=== PATIENT | male | born 1975 | race Caucasian/White ===

== ENCOUNTER 2019-08-23 14:56 | Emergency (ER) | payer MEDICAID ==
[2019-08-23 15:23] VITALS: BP 152/77
[2019-08-23] MEDS ORDERED: KETOROLAC 60 MG/2 ML VIAL IM STA (16:03)
--- NOTE | 2019-08-23 16:06 | ED Physician Documentation ---
History of Present Illness - Stated complaint Stated Complaint: RT KNEE PX - Chief complaint Chief Complaint: General - History obtained from History obtained from: Patient - History of Present Illness Timing: Today Pain level max: 8 Pain level now: 8 - Additonal information Additional information: 44-year-old male presents to the emergency department with right knee pain. Similar to past gout flareups. Out of his indomethacin. Worse with movement, better with rest. No trauma. No fevers. Review of Systems Constitutional: denies: Fever, Chills GI: denies: Vomiting Skin: denies: Rash PD PAST MEDICAL HISTORY - Past Medical History Past Medical History: Yes Musculoskeletal: Gout - Past Surgical History Past Surgical History: No - Present Medications Home Medications: Ambulatory Orders Medication Instructions Recorded Confirmed Indomethacin 25 - 50 mg PO Q8H PRN #30 capsule 08/23/19 - Allergies Allergies/Adverse Reactions: Allergies Allergy/AdvReac Type Severity Reaction Status Date / Time No Known Drug Allergies Allergy Verified 08/23/19 15:19 - Social History Does the pt smoke?: No Smoking Status: Never smoker Does the pt drink ETOH?: No Does the pt have substance abuse?: No - Immunizations Immunizations are current?: Yes - POLST Patient has POLST: No PD ED PE NORMAL - Vitals Vital signs reviewed: Yes - General General: Alert and oriented X 3, No acute distress - HEENT HEENT: Moist mucous membranes - Neck Neck: Supple, no meningeal sign - Derm Derm: Warm and dry - Extremities Extremities: Other (Mild swelling and diffuse tenderness about the right knee. Full range of motion present. No signs of septic joint. Neurovascular intact. No bony tenderness) - Neuro Neuro: Alert and oriented X 3 Results - Vitals Vitals: Vital Signs - 24 hr 08/23/19 15:19 Temperature 36.6 C Heart Rate 71 Respiratory 16 Rate Blood Pressure 152/77 H O2 Saturation 99 Oxygen O2 Source Room air PD MEDICAL DECISION MAKING - ED course Complexity details: considered differential, d/w patient ED course: Patient with a acute gout flare of the right knee. Given Toradol here. Will place on indomethacin for home. He states he normally does not use steroids or colchicine. No evidence of septic joint. No evidence of infection. Patient counseled regarding signs and symptoms for which I believe and urgent re- evaluation would be necessary. Patient with good understanding of and agreement to plan and is comfortable going home at this time This document was made in part using voice recognition software. While efforts are made to proofread this document, sound alike and grammatical errors may occur. Departure - Departure Disposition: 01 Home, Self Care Clinical Impression: Gout flare Qualifiers: Gout site: knee Gout etiology: unspecified cause Laterality: right Qualified Code(s): M10.9 - Gout, unspecified Condition: Good Instructions: ED Arthritis Gout Follow-Up: Your,doctor in 1 week [Other] Prescriptions: Indomethacin 25 - 50 mg PO Q8H PRN #30 capsule PRN Reason: knee pain Comments: Drink plenty of water. Return if you worsen. This should improve with the indomethacin and Toradol.
== END 2019-08-23 16:18 | disposition home or self-care (01) ==
LOC: ED 14:56
DX: M10.9 Gout, unspecified (principal)
CPT/HCPCS: 96372; 99283; 99284

== ENCOUNTER 2019-11-18 06:54 | Emergency (ER) | payer OTHER, MEDICAID ==
[2019-11-18 07:18] VITALS: BP 155/93
[2019-11-18] MEDS ORDERED: DEXAMETHASONE 10 MG/ML VIAL PO STA (07:39)
[2019-11-18] MEDS ORDERED: CHERRY SYRUP 10 ML UDC PO ONE (07:39)
[2019-11-18] MEDS ORDERED: KETOROLAC 60 MG/2 ML VIAL IM STA (07:39)
--- NOTE | 2019-11-18 07:41 | ED Physician Documentation ---
PD HPI BACK PAIN - Stated complaint Stated Complaint: SHOULDER/BACK PX - Chief complaint Chief Complaint: Back Pain - History obtained from History obtained from: Patient - History of Present Illness Timing - onset: How many months ago (3) Timing - duration: Months (3) Timing - details: Gradual onset, Still present, Waxing and waning Location: Upper, Lower, Right Quality: Pain, Spasm, Sharp, Similar to prior episodes Associated symptoms: No: Fever, Weakness, Numbness, Incontinent of urine, Unable to urinate, Hematuria, Incontinent of stool Improves with: Rest, Position Contributing factors: Lifting, Twisting, Other (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 Review of Systems Constitutional: denies: Fever Eyes: denies: Decreased vision Ears: denies: Ear pain Nose: denies: Congestion Throat: denies: Sore throat Cardiac: denies: Chest pain / pressure Respiratory: denies: Dyspnea, Cough GI: denies: Abdominal Pain, Nausea, Vomiting : denies: Dysuria, Frequency Skin: denies: Rash Musculoskeletal: reports: Neck pain, Back pain, Extremity pain, Joint pain PD PAST MEDICAL HISTORY - Past Medical History Musculoskeletal: Gout - Past Surgical History Past Surgical History: No - Present Medications Home Medications: Ambulatory Orders Medication Instructions Recorded Confirmed Indomethacin 25 - 50 mg PO Q8H PRN #30 capsule 08/23/19 Cyclobenzaprine [Flexeril] 10 mg PO TID PRN #20 tablet 11/18/19 Hydrocodone/Acetaminophen 1 - 2 each PO Q6H PRN #14 tablet 11/18/19 [Hydrocodone-Acetamin 5-325 mg] - Allergies Allergies/Adverse Reactions: Allergies Allergy/AdvReac Type Severity Reaction Status Date / Time No Known Drug Allergies Allergy Verified 11/18/19 07:13 - Social History Does the pt smoke?: No Smoking Status: Never smoker Does the pt drink ETOH?: No Does the pt have substance abuse?: No - Immunizations Immunizations are current?: Yes - POLST Patient has POLST: No PD ED PE NORMAL - Vitals Vital signs reviewed: Yes (hpyertensive ) - General General: Alert and oriented X 3, No acute distress, Well developed/nourished - HEENT HEENT: Atraumatic, PERRL, EOMI - Neck Neck: Supple, no meningeal sign, No bony TTP - Respiratory Respiratory: No respiratory distress - Back Back: No CVA TTP, No spinal TTP, Other (There is tenderness midline in the lower lumbar spine and to the left extending into the sciatic notch on the left. There is tenderness to the trapezius bilateraly over the insertion of the spinal accessory. ) - Derm Derm: Normal color, Warm and dry, No rash - Extremities Extremities: No deformity, No edema - Neuro Neuro: Alert and oriented X 3, tanbark laborer 2-12 intact, No motor deficit, No sensory deficit, Normal speech Eye Opening: Spontaneous Motor: Obeys Commands Verbal: Oriented GCS Score: 15 - Psych Psych: Normal mood, Normal affect Results - Vitals Vitals: Vital Signs - 24 hr 11/18/19 07:13 Temperature 36.6 C Heart Rate 60 Respiratory 18 Rate Blood Pressure 155/93 H O2 Saturation 100 Oxygen O2 Source Room air PD MEDICAL DECISION MAKING - ED course Complexity details: reviewed old records, considered differential, d/w patient ED course: 44-year-old male with chronic back pain and sciatic symptoms as well as radiculopathy all seeming to stem from overuse. He has stopped working one week ago and today he is given decadron 10mg PO and toradal 60mg IM and we will provide a short course of pain medication and muscle relaxant and a follow up referral for possible advanced imaging. Departure - Departure Disposition: 01 Home, Self Care Clinical Impression: Cervical radiculopathy Sciatica Qualifiers: Laterality: left Qualified Code(s): M54.32 - Sciatica, left side Condition: Stable Instructions: ED Spasm Back No Trauma, ED Sciatica, ED Cervical Radiculopathy Follow-Up: [facility] [Provider Group] Prescriptions: Cyclobenzaprine [Flexeril] 10 mg PO TID PRN #20 tablet PRN Reason: Spasms Hydrocodone/Acetaminophen [Hydrocodone-Acetamin 5-325 mg] 1 - 2 each PO Q6H PRN #14 tablet PRN Reason: Pain
== END 2019-11-18 08:01 | disposition home or self-care (01) ==
LOC: ED 06:54
DX: M54.12 Radiculopathy, cervical region (principal); M54.32 Sciatica, left side; G89.29 Other chronic pain; X50.3XXA Overexertion from repetitive movements, initial encounter; X50.0XXA Overexertion from strenuous movement or load, initial encounter; Y99.0 Civilian activity done for income or pay
CPT/HCPCS: 1040M; 96372; 99282; 99284; A9270

== ENCOUNTER 2019-11-19 16:42 | Emergency (ER) | payer OTHER, MEDICAID ==
[2019-11-19] MEDS ORDERED: KETOROLAC 60 MG/2 ML VIAL IM STA (17:43)
--- NOTE | 2019-11-19 18:42 | MRI Report ---
PROCEDURE: Lumbar Spine W/O INDICATIONS: low back pain urinary symptoms TECHNIQUE: Noncontrast sagittal T1 spin echo and T2 fast echo, sagittal STIR, axial T1 and T2 fast spin echo thr ough the lumbar spine. In cases with scoliosis, additional coronal T2 fast spin echo may be performe d. COMPARISON: None. FINDINGS: Image quality: Excellent. Alignment and Curvature: Grade 2 anterolisthesis of L4 on L5 measuring approximately 1.4 cm. There th ere is posterior height loss of the L4 vertebral body, along with intermediate signal intensity mater ial immediately posterior to the L4 vertebral body, likely representing either fracture fragments or scarring/granulation tissue related to the provided history of prior fracture. There are bilateral L4 pars defects, potentially traumatic versus congenital. Lumbar spinal alignment is otherwise normal. Vertebral body heights are normal with no evidence of additional fracture. Bone Marrow: Degenerative marrow signal change of the opposing L4-L5 endplates as well as the T11-T12 endplates. Marrow and soft tissue edema surrounding the L4-L5 facets which is strongly suggestive of instability. Spinal Cord: Normal position and appearance of the conus. Visualized portions of the distal thoracic cord are normal. Regional Soft Tissues: Prevertebral and paraspinous soft tissues are otherwise normal. T12-L1: Disc bulge flattens and indents the ventral thecal sac. Disc material displaces the descendi ng right greater than left L1 nerve roots within the subarticular zones (series 701 image 43). Forami nal components of the disc bulge contribute to mild neural foraminal narrowing on the right. L1-L2: No spinal canal or neural foraminal stenosis. L2-L3: No spinal canal or neural foraminal stenosis. L3-L4: No spinal canal or neural foraminal stenosis. L4-L5: Pseudobulge related to the spondylolisthesis combines with true disc bulge to flatten the ve ntral thecal sac with considerable moderately severe mass effect upon the traversing L5 nerve roots i n both subarticular zones. Neural foraminal deformation related to the anterolisthesis combines with disc height loss and foraminal components of the disc material to produce severe bilateral neural for aminal stenosis. There is flattening/deformation of the exiting L4 nerve roots bilaterally, producing strongly suspected impingement. L5-S1: No spinal canal or neural foraminal stenosis. IMPRESSION: Grade 2 spondylolisthesis of L4 on L5 producing severe subarticular zone and neural foraminal stenosi s. Suspected impingement of the L4 and L5 nerve roots as a result. Reviewed by: Alton Miranda MD on 11/19/2019 6:40 PM PDT Approved by: Alton Miranda MD on 11/19/2019 6:40 PM PDT Station ID: [id number]
--- NOTE | 2019-11-19 18:57 | ED Physician Documentation ---
History of Present Illness - Stated complaint Stated Complaint: BACK PX - Chief complaint Chief Complaint: Back Pain - History obtained from History obtained from: Patient - Additonal information Additional information: 44-year-old male presents to the emergency department to have an MRI completed. This gentleman has a history of chronic low back pain as well as shoulder pain. He was seen by my colleague yesterday and initially received a dose of Decadron as well as some of Vicodin. He was following up with his primary care doctor this morning but he reported that he has developed some saddle anesthesia and was having difficulty controlling the flow of his urine. Therefore his primary doctor referred him back to the emergency department with the hopes of obtaining an MRI. Since being seen yesterday patient feels that his pain is not markedly improved. He states that he has had intermittently through the years with back pain is some saddle anesthesia as well as occasional loss of control of bowel or bladder function. Pain is sharp and radiates down the left left at time. Review of Systems Constitutional: reports: Reviewed and negative Nose: reports: Reviewed and negative Throat: reports: Reviewed and negative Cardiac: reports: Reviewed and negative Respiratory: reports: Reviewed and negative GI: reports: Reviewed and negative : reports: Reviewed and negative Skin: reports: Reviewed and negative Musculoskeletal: reports: Joint pain (bilateral shoulders) Neurologic: reports: Numbness (saddle area). denies: Focal weakness Psychiatric: reports: Reviewed and negative PD PAST MEDICAL HISTORY - Past Medical History Past Medical History: Yes Musculoskeletal: Gout, Chronic back pain - Past Surgical History Past Surgical History: Yes Ortho: Carpal Tunnel surgery - Present Medications Home Medications: Ambulatory Orders Medication Instructions Recorded Confirmed Indomethacin 25 - 50 mg PO Q8H PRN #30 capsule 08/23/19 Cyclobenzaprine [Flexeril] 10 mg PO TID PRN #20 tablet 11/18/19 Hydrocodone/Acetaminophen 1 - 2 each PO Q6H PRN #14 tablet 11/18/19 [Hydrocodone-Acetamin 5-325 mg] Oxycodone HCl/Acetaminophen 1 - 2 each PO Q6H PRN #14 tablet 11/19/19 [Percocet 5-325 mg Tablet] - Allergies Allergies/Adverse Reactions: Allergies Allergy/AdvReac Type Severity Reaction Status Date / Time acetaminophen [From Vicodin] AdvReac Emesis Verified 11/19/19 16:58 hydrocodone [From Vicodin] AdvReac Emesis Verified 11/19/19 16:58 - Social History Does the pt smoke?: No Smoking Status: Former smoker Does the pt drink ETOH?: No Does the pt have substance abuse?: No - Immunizations Immunizations are current?: Yes - POLST Patient has POLST: No PD ED PE NORMAL - General General: Alert and oriented X 3, No acute distress - HEENT HEENT: PERRL - Cardiac Cardiac: RRR, No murmur - Respiratory Respiratory: Clear bilaterally - Abdomen Abdomen: Normal bowel sounds, Soft, Non tender, Non distended - Rectal Rectal: Other (Rectal numbness. Mild loss of tone but patient is able to bear down.) - Back Back: Other (No midline lumbar spinous process tenderness. Tenderness of the lower lumbar spinous process muscles. Patient does have saddle anesthesia with loss of sensation medial thighs and rectal testicular area. Rectal tone is normal. Motor strength 5 of 5 ble. walks on toes but not heel on left foot. ) - Neuro Neuro: Alert and oriented X 3, ocean freight forwarder 2-12 intact, No motor deficit Eye Opening: Spontaneous Motor: Obeys Commands Verbal: Oriented GCS Score: 15 Results - Vitals Vitals: Vital Signs - 24 hr 11/19/19 11/19/19 16:56 19:24 Temperature 36.7 C 36.7 C Heart Rate 56 L 54 L Respiratory 17 12 Rate Blood Pressure 131/75 H 134/86 H O2 Saturation 99 99 Oxygen O2 Source Room air - Rads (name of study) MRI Radiology: Final report received (Grade 2 spondylolisthesis of L4-L5 producing severe subarticular zone and neuroforaminal stenosis. Suspected impingement of the L4-L5 roots as a result) CT thoracic Radiology: Final report received (Chronic L4 pars defects with grade 2 anterolisthesis L4-L5 producing severe subarticular zone and neural gnosis bilaterally. 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 Rae Neurosurgery [facility]) ED course: 44-year-old male returns emergency department for evaluation of low back pain and saddle anesthesia. On exam he certainly feels like he has been shot with Novocain in the saddle area. He has some mildly decreased rectal tone but is able to bear down appropriately. The MRI showed grade 2 spondylolisthesis of L4-L5 with nerve root impingement. However these MRI findings do not explain the cause for the saddle anesthesia. I did discuss the MRI findings with neurosurgeon Dr. Rae through [facility]. He would recommend a lumbar girdle as well as a noncontrast CT of the lumbar spine. He would like to see the patient in office tomorrow. His PVR is 16 ml. Return precautions discussed Departure - Departure Disposition: Home, Self Care Clinical Impression: Saddle anesthesia Low back pain Qualifiers: Chronicity: chronic Back pain laterality: left Sciatica presence: without sciatica Qualified Code(s): M54.5 - Low back pain; G89.29 - Other chronic pain Condition: Serious Record reviewed to determine appropriate education?: Yes Prescriptions: Oxycodone HCl/Acetaminophen [Percocet 5-325 mg Tablet] 1 - 2 each PO Q6H PRN #14 tablet PRN Reason: pain Comments: Dr. Kyra Mae would like to see you in his office tomorrow. He is an orthopedic surgeon that deals specifically with defects of the spine and spinal cord. Please call his office in the morning [phone]. Dr. Toni Rae Orthopaedic surgery - orthopaedic surgery of the spine [address] [place] [address] If you develop worsening pain, have worsening numbness between your legs, cannot control your bowel or bladder function I recommend that you go directly to the emergency department. I have prescribed some Percocet for your pain. Please do not take the Vicodin if taking the Percocet. Please have a lumber stacker driver take you to Dr. Rae's office tomorrow.
--- NOTE | 2019-11-19 20:49 | CT Report ---
PROCEDURE: LUMBAR SPINE WO INDICATIONS: Low back pain, cauda equina syndrome TECHNIQUE: Noncontrast 3 mm thick sections acquired from the T12 level to the sacrum. Sagittal and coronal refo rmats were constructed. For radiation dose reduction, the following was used: automated exposure co ntrol, adjustment of mA and/or kV according to patient size. COMPARISON: Same-day MRI FINDINGS: Image quality: Excellent. 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 Chronic bilateral L4 pars defects with grade 2 anterolisthesis of L4 on on L5 producing severe bilate ral subarticular zone and neural foraminal stenosis, better appreciated on comparison MRI. Disc height loss at T10-T11, T11-T12, and T12-L1 with vacuum disc phenomenon and Schmorl nodes at the se levels along with degenerative endplate changes and posterior ossific ridging. No spinal canal rebeca nosis at these levels. Mild neural foraminal stenosis is present at T12-L1. Other findings as described on MRI are not significantly changed. IMPRESSION: Chronic L4 pars defects with grade 2 anterolisthesis of L4 on L5 producing severe subarticular zone a nd neural foraminal stenosis bilaterally. 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 This is a significant pote ntial pain generator on the left. Reviewed by: Alton Miranda MD on 11/19/2019 8:47 PM PDT Approved by: Alton Miranda MD on 11/19/2019 8:47 PM PDT Station ID: [id number]
[2019-11-19] MEDS ORDERED: oxyCODONE/ACET 5/325 Prepack 4 PO STA (20:54)
[2019-11-19 21:13] VITALS: BP 129/71
== END 2019-11-19 21:13 | disposition home or self-care (01) ==
LOC: ED 16:42
DX: R20.0 Anesthesia of skin (principal); M54.5 Low back pain; G89.29 Other chronic pain; Z87.891 Personal history of nicotine dependence
CPT/HCPCS: 51798; 72131; 72148; 99284

== ENCOUNTER 2020-07-20 06:21 | Emergency (ER) | payer MEDICAID ==
[2020-07-20 06:40] VITALS: BP 142/87
--- OUTSIDE RECORDS SUMMARY | 2020-07-20 06:49 | EXTERNAL MEDICAL SUMMARY RPT | Continuity of Care Document ---
:1975 Demographics Phone Unavailable Preferred Language Unknown Marital Status Unknown Jehovah'S Witness Affiliation Unknown Race Unknown Ethnic Group Unknown Author Organization [facility] Address [address] [phone] Phone Allergies Encounters Medications Problems Results
[2020-07-20] MEDS ORDERED: KETOROLAC 60 MG/2 ML VIAL IM STA (06:54)
--- NOTE | 2020-07-20 07:20 | ED Physician Documentation ---
History of Present Illness - Stated complaint Stated Complaint: GOUT FLAIR UP - Chief complaint Chief Complaint: Ext Problem - History obtained from History obtained from: Patient - History of Present Illness Timing: How many weeks ago (1) - Additonal information Additional information: 45-year-old male with a history of gout has began to have an a flare last night and took some indomethacin. He states that did help a bit but in the past he has found that a shot of Toradol is helped tremendously especially if he gets it early enough. He has not otherwise been ill recently. Review of Systems Constitutional: denies: Fever Eyes: denies: Decreased vision Ears: denies: Ear pain Nose: denies: Congestion Throat: denies: Sore throat Cardiac: denies: Chest pain / pressure, Palpitations Respiratory: denies: Dyspnea, Cough GI: denies: Abdominal Pain, Nausea, Vomiting : denies: Dysuria, Frequency Skin: denies: Rash Musculoskeletal: reports: Back pain, Joint pain, Pain with weight bearing. denies: Neck pain, Extremity swelling Neurologic: denies: Generalized weakness, Focal weakness, Numbness PD PAST MEDICAL HISTORY - Past Medical History Musculoskeletal: Gout, Chronic back pain - Past Surgical History Past Surgical History: Yes Ortho: Carpal Tunnel surgery - Present Medications Home Medications: Ambulatory Orders Medication Instructions Recorded Confirmed Buspirone HCl 10 mg PO DAILY 07/20/20 07/20/20 Dextroamphetamine/Amphetamine 30 mg PO DAILY 07/20/20 07/20/20 [Adderall Xr 30 mg Capsule] - Allergies Allergies/Adverse Reactions: Allergies Allergy/AdvReac Type Severity Reaction Status Date / Time acetaminophen [From Vicodin] AdvReac Emesis Verified 07/20/20 06:39 hydrocodone [From Vicodin] AdvReac Emesis Verified 07/20/20 06:39 - Social History Does the pt smoke?: No Smoking Status: Former smoker Does the pt drink ETOH?: No Does the pt have substance abuse?: No - Immunizations Immunizations are current?: Yes - POLST Patient has POLST: No PD ED PE NORMAL - Vitals Vital signs reviewed: Yes (Hypertensive) - General General: Alert and oriented X 3, No acute distress, Well developed/nourished - HEENT HEENT: Atraumatic, PERRL, EOMI - Respiratory Respiratory: No respiratory distress - Derm Derm: Normal color, Warm and dry, No rash - Extremities Extremities: No deformity, No edema, No calf tenderness / cord, Other (The ligaments are stable to testing on the left knee there is no significant joint effusion or warmth. There is some pain to range of motion and to exam in general.) - Neuro Neuro: Alert and oriented X 3, child custody evaluator 2-12 intact, No motor deficit, No sensory deficit, Normal speech Eye Opening: Spontaneous Motor: Obeys Commands Verbal: Oriented GCS Score: 15 - Psych Psych: Normal mood, Normal affect Results - Vitals Vitals: Vital Signs - 24 hr 07/20/20 06:35 Temperature 36.3 C L Heart Rate 52 L Respiratory 20 Rate Blood Pressure 142/87 H O2 Saturation 97 Oxygen O2 Source Room air PD MEDICAL DECISION MAKING - ED course Complexity details: reviewed old records, re-evaluated patient, considered differential, d/w patient ED course: 45-year-old male with a flare of gout requests a shot of Toradol declines narcotic pain reliever. Is encouraged to use Pepcid AC while he is on the indomethacin as it does given him an upset stomach. Departure - Departure Disposition: 01 Home, Self Care Clinical Impression: Gout flare Qualifiers: Gout site: knee Gout etiology: unspecified cause Laterality: left Qualified Code(s): M10.9 - Gout, unspecified Condition: Stable Instructions: ED Arthritis Gout, ED Diet Gout Follow-Up: AMY BRAVO PA [Primary Care Provider] -
== END 2020-07-20 07:35 | disposition home or self-care (01) ==
LOC: ED 06:21
DX: M10.062 Idiopathic gout, left knee (principal); M54.9 Dorsalgia, unspecified; Z87.891 Personal history of nicotine dependence
CPT/HCPCS: 96372; 99283

== ENCOUNTER 2020-09-28 18:10 | Emergency (ER) | payer MEDICAID ==
[2020-09-28] MEDS ORDERED: TETANUS/DIPHTHERIA/PERTUSSIS 0.5 ML SYRINGE IM ONE (18:27)
[2020-09-28] MEDS ORDERED: BUFFERED LIDOCAINE 10 ML SYRINGE SUBQ STA (18:27)
[2020-09-28] MEDS ORDERED: BACITRACIN ZINC OINT 1 PACKET TOP STA (18:27)
[2020-09-28] MEDS ORDERED: oxyCODONE 5 MG TABLET PO STA (18:28)
--- NOTE | 2020-09-28 18:29 | ED Physician Documentation ---
History of Present Illness - Stated complaint Stated Complaint: HEAD INJURY - Chief complaint Chief Complaint: Laceration - Additonal information Additional information: 45-year-old male presents emergency department for evaluation of head injury. He was moving a ladder in his home and there was a hammer on the top step. When moving the hammer over a chair the hammer fell from a height of about 4 feet striking him on his left forehead. He reports the hammer weight approximately 4 pounds. He did not lose consciousness but endorses a persistent headache since the incident about 45 minutes ago. Unknown last tetanus. He is not anti coagulated. Review of Systems Constitutional: denies: Fever, Chills Eyes: reports: Reviewed and negative Ears: reports: Reviewed and negative Nose: reports: Reviewed and negative Throat: reports: Reviewed and negative Cardiac: reports: Reviewed and negative Skin: reports: Laceration (s) (Left forehead) Neurologic: reports: Headache PD PAST MEDICAL HISTORY - Past Medical History Cardiovascular: None Respiratory: None Neuro: None Endocrine/Autoimmune: None GI: GERD : None HEENT: None Psych: None Musculoskeletal: Gout, Chronic back pain Derm: None - Past Surgical History Past Surgical History: Yes Ortho: Carpal Tunnel surgery - Present Medications Home Medications: Ambulatory Orders Medication Instructions Recorded Confirmed Dextroamphetamine/Amphetamine 40 mg PO DAILY 07/20/20 09/28/20 [Adderall Xr 30 mg Capsule] Sertraline [Zoloft] 25 mg PO DAILY 09/28/20 09/28/20 Sildenafil Citrate [Viagra] 50 - 75 mg PO DAILY PRN 09/28/20 09/28/20 - Allergies Allergies/Adverse Reactions: Allergies Allergy/AdvReac Type Severity Reaction Status Date / Time acetaminophen [From Vicodin] AdvReac Emesis Verified 09/28/20 18:14 hydrocodone [From Vicodin] AdvReac Emesis Verified 09/28/20 18:14 - Social History Does the pt smoke?: No Smoking Status: Never smoker Does the pt drink ETOH?: No Does the pt have substance abuse?: No - Immunizations Immunizations are current?: Yes - POLST Patient has POLST: No PD ED PE EXPANDED - General General: Alert, No acute distress, Well developed/nourished - HEENT HEENT: No: Atraumatic (2cm stellate laceration left forehead) - Neck Neck: Supple w/out meningeal sx. No: Adenopathy - Cardiac Cardiac: Regular Rate, Radial strong equal, Pedal strong equal, Cap refill < 2 sec. No: Murmur Present - Respiratory Respiratory: Clear to ausultation cortney. No: Distress, Labored - Derm Derm: Normal color, Warm and dry, Laceration(s) (2 cm stellate laceration left forehead) - Extremities Extremities: Normal. No: Deformity, Tenderness - Neuro Neuro: Alert and Oriented X 3, CNII-XII intact - GCS Eye Opening: Spontaneous Motor: Obeys Commands Verbal: Oriented Total: 15 Results - Vitals Vitals: Vital Signs - 24 hr 09/28/20 18:14 Temperature 36.5 C Heart Rate 65 Respiratory 16 Rate Blood Pressure 160/95 H O2 Saturation 97 Oxygen O2 Source Room air - Rads (name of study) CT head Radiology: Final report received (Left frontal scalp hematoma without skull fracture or intracranial hemorrhage.) Procedures - Laceration (location) left forehead Length in cm: 2 Wound type: Stellate, Irregular, Into subcut fat, Clean Neurovascular status: Sensory intact, Motor intact Tendon involvement: Tendon intact Anesthesia: Lidocaine 1% Wound preparation: Chlorhexadine, Irrigated copiously NS, To the base, debridement of wound edges (traumatic laceration/avulsion) Skin layer closure: Interrupted, Size #-0 - enter number (5), Sutures - enter # (3) Other: Patient tolerated well, No complications, Neurovascular intact, Dressing applied, Tetanus booster given PD MEDICAL DECISION MAKING - ED course Complexity details: reviewed results, d/w patient, d/w family ED course: 45-year-old male presents emergency department for evaluation of laceration to his forehead when he was moving a ladder and a 4 pound hammer fell from a height of 4 to 5 feet onto his forehead. There was no loss of consciousness. He is not anticoagulated. He presents well-appearing with no focal neuro deficits. He did have an irregular stellate laceration to the forehead which was closed at the bedside. CT the head shows no acute fractures or intracranial hemorrhage. Patient does not endorse a fairly persistent headache likely secondary to concussion. Will be discharged home with return precautions. Recommend Tylenol or ibuprofen for discomfort. Departure - Departure Disposition: 01 Home, Self Care Clinical Impression: Forehead laceration Qualifiers: Encounter type: initial encounter Qualified Code(s): S01.81XA - Laceration without foreign body of other part of head, initial encounter Concussion Qualifiers: Encounter type: initial encounter Loss of consciousness presence/duration: without LOC Qualified Code(s): S06.0X0A - Concussion without loss of consciousness, initial encounter Condition: Stable Record reviewed to determine appropriate education?: Yes Instructions: Brain Injury Mild Traum Concussion, Brain Injury Mild Traum Concu ss Tx Comments: Tu you were seen in the emergency department today after A hammer fell from a ladder striking you in the forehead. The CT of your head does not show any broken bones, no skull fracture and no bruising or bleeding within the brain. You did have an irregular laceration on your left forehead that we did close with 3 sutures. These should be removed in 5 to 7 days. Given how irregular this wound is I do expect that you will likely have a scar. You likely have a concussion secondary to the mechanism of injury. I would like you to get plenty of rest. Your goal should be to sleep 7 to 8 hours at night. Avoid excessive computer or TV or computer use over the next week. If at any point you develop a suddenly severe headache, have vision changes, uncontrolled vomiting, develop facial droop or slurred speech then please return immediately to the ER for a second evaluation
--- NOTE | 2020-09-28 19:20 | CT Report ---
PROCEDURE: HEAD WO INDICATIONS: hit by hammer; eval for TBI/skull fx TECHNIQUE: Noncontrast 4.5 mm thick angled axial sections acquired from the foramen magnum to the vertex. For r adiation dose reduction, the following was used: automated exposure control, adjustment of mA and/or kV according to patient size. COMPARISON: None. FINDINGS: Image quality: Excellent. CSF spaces: Basal cisterns are patent. No extra-axial fluid collections. Ventricles are normal in size and shape. Brain: No midline shift. No intracranial masses or hemorrhage. Mijares-white matter interface is norm al. Skull and face: Calvarium and visualized facial bones are intact, without suspicious lesions. Left frontal scalp hematoma Sinuses: Visualized sinuses and mastoids are clear. IMPRESSION: Left frontal scalp hematoma without skull fracture or intracranial hemorrhage Reviewed by: Dionte Witt MD on 09/28/2020 6:19 PM AKBEE Approved by: Dionte Witt MD on 09/28/2020 6:19 PM AKDT Station ID: [id number]
[2020-09-28 19:38] VITALS: BP 126/68
== END 2020-09-28 19:38 | disposition home or self-care (01) ==
LOC: ED 18:10
DX: S01.81XA Laceration without foreign body of other part of head, initial encounter (principal); S06.0X0A Concussion without loss of consciousness, initial encounter; W20.8XXA Other cause of strike by thrown, projected or falling object, initial encounter; Y92.009 Unspecified place in unspecified non-institutional (private) residence as the place of occurrence of the external cause
CPT/HCPCS: 13131; 70450; 90471; 90715; 99284; A9270

== ENCOUNTER 2021-06-06 07:50 | Emergency (ER) | payer MEDICAID ==
[2021-06-06 08:01] VITALS: BP 158/93
--- NOTE | 2021-06-06 08:15 | ED Physician Documentation ---
PD HPI UPPER EXT INJURY - Stated complaint Stated Complaint: RT HAND INJ - Chief complaint Chief Complaint: Trauma Ext - History obtained from History obtained from: Patient - History of Present Illness Location: Right, Hand Type of injury: Blunt / blow Where injury occurred: Home Timing - onset: How many days ago (10) Timing - duration: Days (10) Timing - details: Abrupt onset, Still present Improved by: Rest, Immobilization Worsened by: Moving, Palpating Associated symptoms: Swelling Contributing factors: No: Anticoagulated Similar symptoms before: Diagnosis (fracture) Recently seen: Not recently seen - Additonal information Additional information: Previously well 46-year-old male was in his home working on some tiling out in front of his door when his children opened the door and smashed his hand into the door. He has swelling and point tenderness over the fifth metacarpal distally and he was able to function fairly well until about 2 nights ago when he began to have more more aching pain pain is radiating all the way up to the elbow and has kept him awake at night. He did mow the lawn prior to the onset of these new symptoms. He has had multiple fractures previously feels that he is likely suffering from the effects of a fracture Review of Systems Constitutional: denies: Fever Nose: reports: Congestion Throat: denies: Sore throat Cardiac: denies: Chest pain / pressure Respiratory: denies: Dyspnea, Cough GI: denies: Abdominal Pain, Vomiting, Diarrhea Skin: denies: Rash Musculoskeletal: reports: Extremity pain, Joint pain, Extremity swelling, Joint swelling. denies: Neck pain, Back pain Neurologic: denies: Generalized weakness, Focal weakness, Numbness PD PAST MEDICAL HISTORY - Past Medical History Cardiovascular: None Respiratory: None Neuro: None Endocrine/Autoimmune: None GI: GERD : None HEENT: None Psych: None Musculoskeletal: Gout, Chronic back pain Derm: None - Past Surgical History Past Surgical History: Yes Ortho: Carpal Tunnel surgery - Present Medications Home Medications: Ambulatory Orders Medication Instructions Recorded Confirmed Dextroamphetamine/Amphetamine 30 mg PO DAILY 07/20/20 06/06/21 [Adderall Xr 30 mg Capsule] Sertraline [Zoloft] 25 mg PO DAILY 09/28/20 09/28/20 Sildenafil Citrate [Viagra] 50 - 75 mg PO DAILY PRN 09/28/20 09/28/20 - Allergies Allergies/Adverse Reactions: Allergies Allergy/AdvReac Type Severity Reaction Status Date / Time acetaminophen [From Vicodin] AdvReac Emesis Verified 06/06/21 08:01 hydrocodone [From Vicodin] AdvReac Emesis Verified 06/06/21 08:01 - Social History Does the pt smoke?: No Smoking Status: Never smoker Does the pt drink ETOH?: No Does the pt have substance abuse?: No - Immunizations Immunizations are current?: Yes Immunizations: TDAP >10years/unknown - POLST Patient has POLST: No PD ED PE NORMAL - Vitals Vital signs reviewed: Yes (hypertensive ) - General General: Alert and oriented X 3, No acute distress - HEENT HEENT: Atraumatic, PERRL, EOMI - Respiratory Respiratory: No respiratory distress - Derm Derm: Normal color, Warm and dry, No rash - Extremities Extremities: Other (swelling and point tenderness to the right distal 5th metacarpal consistent with boxers fracture. distal n/v intact. ) - Neuro Neuro: Alert and oriented X 3, vp product management 2-12 intact, No motor deficit, No sensory deficit, Normal speech Eye Opening: Spontaneous Motor: Obeys Commands Verbal: Oriented GCS Score: 15 - Psych Psych: Normal mood, Normal affect Results - Vitals Vitals: Vital Signs - 24 hr 06/06/21 07:55 Temperature 36.1 C L Heart Rate 69 Respiratory 14 Rate Blood Pressure 158/93 H O2 Saturation 97 Oxygen O2 Source Room air - Rads (name of study) right hand Radiology: Prelim report reviewed (Impression: 1. Mildly impacted and angulated fracture of the distal fifth metacarpal.), EMP read indepedently, See rad report Procedures - Splint (location) right hadn Splint applied by: Tech Type of splint: Fiberglass, Ulnar gutter Other: Patient tolerated well, No complications, Neurovascular intact, Good alignment PD MEDICAL DECISION MAKING - ED course Complexity details: reviewed old records, reviewed results, re-evaluated patient, considered differential, d/w patient ED course: Previously well 46-year-old male has had a contusion to his right hand with a boxer's fracture. He is placed into an ulnar gutter splint he is given 60 mg of Toradol IM and I will have him follow-up with orthopedics for casting. Departure - Departure Disposition: 01 Home, Self Care Clinical Impression: Boxer's fracture Qualifiers: Encounter type: initial encounter Fracture type: closed Qualified Code(s): S62.339A - Displaced fracture of neck of unspecified metacarpal bone, initial encounter for closed fracture Condition: Stable Instructions: ED Fx Boxer Follow-Up: AMY BRAVO PA [Primary Care Provider] - Zak Wilkins MD [Provider Admit Priv/Credential] - Comments: Tu, today it looks like you have fractured the fifth metacarpal. This is called a boxer fracture and these tend to heal well. You will be much more comfortable in the ulnar gutter splint. Call the orthopedic doctor's office for a follow-up within the week for casting.
[2021-06-06] MEDS: KETOROLAC 60 MG/2 ML VIAL IM STA (08:22)
--- NOTE | 2021-06-06 08:30 | XRAY Report ---
PROCEDURE: Hand 3 View RT INDICATIONS: Trauma TECHNIQUE: 3 views of the hand acquired. COMPARISON: None. FINDINGS: Bones: There is a fracture of the fifth metacarpal neck with mild impaction and volar angulation. No additional fractures or dislocations identified. Soft tissues: No suspicious soft tissue calcifications. There is soft tissue swelling along the ulna r aspect of the hand. IMPRESSION: 1. Mildly impacted and angulated fracture of the distal fifth metacarpal. Reviewed by: Arturo Calhoun MD on 06/06/2021 8:29 AM PDT Approved by: Arturo Calhoun MD on 06/06/2021 8:29 AM PDT Station ID: [id number]
== END 2021-06-06 08:42 | disposition home or self-care (01) ==
LOC: ED 07:50
DX: S62.336A Displaced fracture of neck of fifth metacarpal bone, right hand, initial encounter for closed fracture (principal); W20.8XXA Other cause of strike by thrown, projected or falling object, initial encounter; Y93.89 Activity, other specified; Y92.008 Other place in unspecified non-institutional (private) residence as the place of occurrence of the external cause
CPT/HCPCS: 29125; 99282; 99283

== ENCOUNTER 2021-09-10 09:23 | Emergency (ER) | payer MEDICAID ==
--- NOTE | 2021-09-10 10:38 | ED Physician Documentation ---
PD HPI LOWER EXT INJURY - Stated complaint Stated Complaint: R KNEE SWELLING - Chief complaint Chief Complaint: Ext Problem - History obtained from History obtained from: Patient - History of Present Illness PD HPI LOW EXT INJURY LOCATION: Right, Knee (anteriorly) Type of injury: Other (feeling like prior gout.). No: Fall, Twist Timing - onset: How many days ago (has had it for 10 days and was partly improved with Indocin prior Rx, but then flared again despite it.) Timing - duration: Days (10) Timing - details: Gradual onset, Still present Improved by: No: Rest Worsened by: Moving, Palpating Associated symptoms: Swelling, Discolored (redness). No: Weakness, Numbness Similar symptoms before: Diagnosis (gout) Recently seen: Not recently seen Review of Systems Constitutional: denies: Fever, Chills Skin: denies: Rash, Lesions, Abrasion (s), Laceration (s) Neurologic: denies: Focal weakness, Numbness PD PAST MEDICAL HISTORY - Past Medical History Past Medical History: Yes Cardiovascular: None Respiratory: None Neuro: None Endocrine/Autoimmune: None GI: GERD : None HEENT: None Psych: None Musculoskeletal: Gout, Chronic back pain Derm: None - Past Surgical History Past Surgical History: Yes Ortho: Carpal Tunnel surgery - Present Medications Home Medications: Ambulatory Orders Medication Instructions Recorded Confirmed Dextroamphetamine/Amphetamine 30 mg PO DAILY 07/20/20 06/06/21 [Adderall Xr 30 mg Capsule] Sertraline [Zoloft] 25 mg PO DAILY 09/28/20 09/28/20 Sildenafil Citrate [Viagra] 50 - 75 mg PO DAILY PRN 09/28/20 09/28/20 dexAMETHasone [Decadron] 4 mg PO DAILY #7 tablet 09/10/21 - Allergies Allergies/Adverse Reactions: Allergies Allergy/AdvReac Type Severity Reaction Status Date / Time acetaminophen [From Vicodin] AdvReac Emesis Verified 09/10/21 09:38 hydrocodone [From Vicodin] AdvReac Emesis Verified 09/10/21 09:38 - Social History Does the pt smoke?: No Smoking Status: Never smoker Does the pt drink ETOH?: No Does the pt have substance abuse?: No - Immunizations Immunizations are current?: Yes Immunizations: TDAP >10years/unknown - POLST Patient has POLST: No PD ED PE NORMAL - Vitals Vital signs reviewed: Yes - General General: Alert and oriented X 3, No acute distress, Well developed/nourished - Derm Derm: Normal color, Warm and dry - Extremities Extremities: Other (right knee anteriorly with redness and tender. No skin sores. Mild effusion anterior. ) - Neuro Neuro: Alert and oriented X 3, No motor deficit, No sensory deficit, Normal speech Results - Vitals Vitals: Oxygen O2 Source Room air PD MEDICAL DECISION MAKING - ED course Complexity details: considered differential (he states feels like gout and no skin sores/fever/signs of infection. Just not improving with usual indomethacin. ), d/w patient Departure - Departure Disposition: 01 Home, Self Care Clinical Impression: Exacerbation of gout Right knee pain Qualifiers: Chronicity: acute Qualified Code(s): M25.561 - Pain in right knee Condition: Stable Record reviewed to determine appropriate education?: Yes Instructions: ED Arthritis Gout Prescriptions: dexAMETHasone [Decadron] 4 mg PO DAILY #7 tablet Comments: Continue with your typical Tylenol and indomethacin as needed over the next few days. If your gout is not decreasing significantly in the next day or so then added in Decadron steroid daily for 4 to 5 days. Recheck if still not better with those treatments. Discharge Date/Time: 09/10/21 11:31
[2021-09-10] MEDS ORDERED: KETOROLAC 30 MG/ML VIAL IM STA (10:45)
[2021-09-10] MEDS ORDERED: DEXAMETHASONE 10 MG/ML VIAL PO STA (10:45)
[2021-09-10] MEDS ORDERED: CHERRY SYRUP 10 ML UDC PO ONE (10:45)
[2021-09-10 11:25] VITALS: BP 130/91
== END 2021-09-10 11:31 | disposition home or self-care (01) ==
LOC: ED 09:23
DX: M25.561 Pain in right knee (principal); M10.9 Gout, unspecified
CPT/HCPCS: 96372; 99283; A9270

== ENCOUNTER 2021-11-13 15:19 | Emergency (ER) | payer MEDICAID ==
[2021-11-13 15:25] VITALS: BP 141/77
[2021-11-13] MEDS ORDERED: KETOROLAC 60 MG/2 ML VIAL IM STA (15:38)
--- NOTE | 2021-11-13 15:41 | ED Physician Documentation ---
History of Present Illness - Stated complaint Stated Complaint: R KNEE PX - Chief complaint Chief Complaint: Ext Problem - Additonal information Additional information: 46-year-old male presents emergency department for evaluation and treatment of his persistent right knee pain which she attributes to a gout flare. This particular episode has been ongoing now for about 2 months. He has had some success using colchicine but is in between primary care providers and not able to get a refill. He states that allopurinol worsens his gout flare and he would prefer not to take that. He does have some success managing pain and swelling using a neoprene sleeve. He has had no fevers. No erythema. No falls. Patient would prefer to avoid steroids at this time if possible as he is recently taken 2 courses Review of Systems Constitutional: denies: Fever, Chills Throat: reports: Reviewed and negative GI: reports: Reviewed and negative : reports: Reviewed and negative Musculoskeletal: reports: Joint pain, Joint swelling PD PAST MEDICAL HISTORY - Past Medical History Cardiovascular: None Respiratory: None Neuro: None Endocrine/Autoimmune: None GI: GERD : None HEENT: None Psych: None Musculoskeletal: Gout, Chronic back pain Derm: None - Past Surgical History Past Surgical History: Yes Ortho: Carpal Tunnel surgery - Present Medications Home Medications: Ambulatory Orders Medication Instructions Recorded Confirmed Dextroamphetamine/Amphetamine 30 mg PO DAILY 07/20/20 06/06/21 [Adderall Xr 30 mg Capsule] Sertraline [Zoloft] 25 mg PO DAILY 09/28/20 09/28/20 Sildenafil Citrate [Viagra] 50 - 75 mg PO DAILY PRN 09/28/20 09/28/20 dexAMETHasone [Decadron] 4 mg PO DAILY #7 tablet 09/10/21 Colchicine 0.6 mg PO TID PRN #21 tablet 10/06/21 predniSONE [Deltasone] 60 mg PO DAILY 5 Days #15 tablet 10/06/21 traMADol [Ultram] 50 mg PO Q4-6H PRN #20 tablet 10/06/21 Colchicine 0.6 mg PO TID PRN #30 tablet 11/13/21 oxyCODONE [Roxicodone] 5 mg PO TID PRN #10 tablet 11/13/21 - Allergies Allergies/Adverse Reactions: Allergies Allergy/AdvReac Type Severity Reaction Status Date / Time acetaminophen [From Vicodin] AdvReac Emesis Verified 11/13/21 15:25 hydrocodone [From Vicodin] AdvReac Emesis Verified 11/13/21 15:25 - Social History Does the pt smoke?: No Smoking Status: Never smoker Does the pt drink ETOH?: No Does the pt have substance abuse?: No - Immunizations Immunizations are current?: Yes Immunizations: TDAP >10years/unknown - POLST Patient has POLST: No PD ED PE EXPANDED - Extremities Extremities: Right knee (Moderate swelling of the right knee just above the patella. Normal flexion extension. No micromotion tenderness. Patient is able to bear full weight has a mildly antalgic gait. No laxity. No surrounding erythema.) Results - Vitals Vitals: Vital Signs - 24 hr 11/13/21 15:21 Temperature 37.1 C Heart Rate 73 Respiratory 16 Rate Blood Pressure 141/77 H O2 Saturation 98 Oxygen O2 Source Room air PD MEDICAL DECISION MAKING - ED course Complexity details: reviewed results, re-evaluated patient, d/w patient ED course: 46-year-old male presents emergency department requesting a refill of the colchicine for his gout. This gout flare is been persistent now in his right knee. He is having difficulty establishing with a primary care provider through [facility]. On exam of the knee there is some moderate swelling but no erythema. No fevers. Given the history and the longstanding duration of this episode my suspicion for an occult infective process is rather low. I will write a prescription for the colchicine. I will also write a prescription for limited amount of oxycodone. The patient has not tolerated allopurinol in the past and prefers not to take that. He would also prefer to avoid a course of steroids at this time as he has had 2 over the last few months. I have made some recommendations to the patient for where he may otherwise establish with primary care. Emergent return precautions were discussed for worsening symptoms and concerns of infection. Departure - Departure Disposition: 01 Home, Self Care Clinical Impression: History of gout Right knee pain Qualifiers: Chronicity: acute Qualified Code(s): M25.561 - Pain in right knee Condition: Stable Record reviewed to determine appropriate education?: Yes Prescriptions: Colchicine 0.6 mg PO TID PRN #30 tablet PRN Reason: Pain oxyCODONE [Roxicodone] 5 mg PO TID PRN #10 tablet PRN Reason: Pain Comments: Tu it sounds like you continue to have a poorly controlled gout flare in your right knee. It is going to be very important that you establish with a primary care doctor in order to get the appropriate referral and management long-term. I sent a prescription for the colchicine to the [facility] in [place]. For more severe pain I have also sent a prescription for some oxycodone. I encourage you to continue to use the neoprene sleeve or the Rene wrap for compression and swelling. Continuing to ice the knee may be important. The [facility] in [place] and [place] do have primary care providers that are accepting new patients. This may be a good alternative for you to establish with for primary care. They also have all appropriate specialty services.
== END 2021-11-13 15:54 | disposition home or self-care (01) ==
LOC: ED 15:19
DX: M25.561 Pain in right knee (principal)
CPT/HCPCS: 96372; 99281; 99283

== ENCOUNTER 2022-01-29 00:05 | Emergency (ER) | payer MEDICAID ==
[2022-01-29 00:27] VITALS: BP 138/87
[2022-01-29] MEDS ORDERED: KETOROLAC 60 MG/2 ML VIAL IM STA (02:49)
[2022-01-29] MEDS ORDERED: DEXAMETHASONE 10 MG/ML VIAL PO STA (02:49)
[2022-01-29] MEDS ORDERED: COLCHICINE 0.6 MG TABLET PO STA (02:49)
[2022-01-29] MEDS ORDERED: CHERRY SYRUP 10 ML UDC PO ONE (02:49)
--- NOTE | 2022-01-29 02:52 | ED Physician Documentation ---
History of Present Illness - Stated complaint Stated Complaint: GOUT R KNEE - Chief complaint Chief Complaint: Ext Problem - Additonal information Additional information: Patient is a 46-year-old male presenting to the emergency department with concern for acute gout. Reports longstanding history of gout. Has had increasing pain in his right knee and right great toe for the last several days. Reports that this is similar to gouty flares he has had in the past. Denies any changes in medications, diet or alcohol intake. Denies any fever at home. Reports that in the past he has responded well to Decadron, IM Toradol and colchicine. Review of Systems Ten Systems: 10 systems reviewed and negative Constitutional: denies: Fever Skin: reports: Rash Musculoskeletal: reports: Joint pain, Joint swelling PD PAST MEDICAL HISTORY - Past Medical History Past Medical History: Yes Cardiovascular: None Respiratory: None Neuro: None Endocrine/Autoimmune: None GI: GERD : None HEENT: None Psych: None Musculoskeletal: Gout, Chronic back pain Derm: None - Past Surgical History Past Surgical History: Yes Ortho: Carpal Tunnel surgery - Present Medications Home Medications: Ambulatory Orders Medication Instructions Recorded Confirmed Colchicine 0.6 mg PO BID #10 tablet 01/29/22 Indomethacin [Indocin] 50 mg PO BIDWM #30 cap 01/29/22 Omeprazole 40 mg PO DAILY #20 cap 01/29/22 Ondansetron Odt [Zofran] 4 mg TL Q6H PRN #10 tablet 01/29/22 dexAMETHasone [Decadron] 4 mg PO DAILY 7 Days #7 tablet 01/29/22 - Allergies Allergies/Adverse Reactions: Allergies Allergy/AdvReac Type Severity Reaction Status Date / Time acetaminophen [From Vicodin] AdvReac Emesis Verified 01/29/22 00:27 hydrocodone [From Vicodin] AdvReac Emesis Verified 01/29/22 00:27 - Social History Does the pt smoke?: No Smoking Status: Never smoker Does the pt drink ETOH?: No Does the pt have substance abuse?: No - Immunizations Immunizations are current?: Yes Immunizations: TDAP >10years/unknown - POLST Patient has POLST: No PD ED PE NORMAL - Vitals Vital signs reviewed: Yes - General General: Alert and oriented X 3, No acute distress - HEENT HEENT: Atraumatic, PERRL, EOMI, Ears normal - Neck Neck: Supple, no meningeal sign - Cardiac Cardiac: RRR, No gallop - Respiratory Respiratory: No respiratory distress - Abdomen Abdomen: Normal bowel sounds - Male Male : Deferred - Rectal Rectal: Deferred - Back Back: No CVA TTP - Derm Derm: Normal color - Extremities Extremities: Other (Patient has soft tissue swelling to the right knee. There is no joint instability. Additionally there is swelling and erythema to the right great toe MTP joint. Pain is exacerbated with range of motion.) Results - Vitals Vitals: Vital Signs - 24 hr 01/29/22 00:23 Temperature 36.8 C Heart Rate 66 Respiratory 16 Rate Blood Pressure 138/87 H O2 Saturation 99 Oxygen O2 Source Room air PD Medical Decision Making - ED course Complexity details: reviewed old records, reviewed results, d/w patient ED course: Patient is 46-year-old male with longstanding history of gouty arthritis presenting to the emergency department with right knee and right great toe pain. Patient reports that this is similar to episodes of gout he has had in the past. Denied fever or other symptoms that would be of eminent concern for infection. Specifically requested IM Toradol as well as colchicine. Physical exam demonstrated some soft tissue swelling around the knee as well as some erythema at the right MTP joint. Patient is otherwise nontoxic and there is nothing of eminent concern for septic arthritis. Chart review demonstrates that he was responded well to oral Decadron, Toradol and colchicine and these were ordered. I did detailed discussion with the patient about the importance of careful follow-up with primary care. Additionally I discussed the importance of return to the emergency department for any fever, worsening symptoms or failure to respond to therapy that would be indicative of underlying infectious or alternative etiology for his symptoms. He verbalized understanding of these things. Clear return precautions are given prior to discharge. Final clinical impression: Gouty arthritis. Departure - Departure Clinical Impression: Gout attack Instructions: ED Arthritis Gout, ED Diet Gout Prescriptions: Colchicine 0.6 mg PO BID #10 tablet dexAMETHasone [Decadron] 4 mg PO DAILY 7 Days #7 tablet Indomethacin [Indocin] 50 mg PO BIDWM #30 cap Omeprazole 40 mg PO DAILY #20 cap Ondansetron Odt [Zofran] 4 mg TL Q6H PRN #10 tablet PRN Reason: Nausea / Vomiting Comments: Thank you for allowing us to care for you today [facility]. Have sent some medications to your preferred pharmacy, including an ongoing course of colchicine, strong nonsteroidal anti-inflammatory medication and a course of oral Decadron. I will also be prescribing you with an antiacid pill to take daily as all of these medications can result in gastritis and increase your risk for peptic ulcer disease. Please make a follow-up appoint with your primary care doctor. If your symptoms worsen, or do not appear to be improving with therapy or if you develop other concerning symptoms such as fever its important that you return to the emergency department for reevaluation.
== END 2022-01-29 03:11 | disposition home or self-care (01) ==
LOC: ED 00:05
DX: M10.9 Gout, unspecified (principal); K21.9 Gastro-esophageal reflux disease without esophagitis
CPT/HCPCS: 96372; 99283; 99284; A9270